=== PATIENT | male | born 1965 | race Caucasian/White ===

== ENCOUNTER 2018-07-10 06:43 | Day surgery (SDC) | payer MEDICAID, OTHER ==
[2018-07-10] MEDS ORDERED: Propofol 200 MG/20 ML SDV ONE (07:04)
[2018-07-10] MEDS ORDERED: Midazolam 1 MG/ML 2 ML SDV ONE (07:04)
[2018-07-10] MEDS ORDERED: fentaNYL 100 MCG/2 ML SDV ONE (07:04)
[2018-07-10] MEDS ORDERED: Dextrose 5%-Lactated Ringers 1,000 ML IV SCH (07:30)
[2018-07-10 10:21] VITALS: BP 122/70
--- NOTE | 2018-07-17 10:17 | OR ---
DATE OF PROCEDURE: 07/10/2018 PREOPERATIVE DIAGNOSES: 1. Chronic loose bowel movements and diarrhea and urgency in the postprandial period. 2. Normal colonoscopic examination other than for limited left colonic diverticulosis. OPERATIVE PROCEDURE: Flexible colonoscopy with: 1. Collection of stool for microbiologic workup ([id number]). 2. Colorectal biopsies to rule out microscopic colitis. ANESTHESIA: IV sedation. INDICATION FOR PROCEDURE: This is a 52-year-old presenting with history of chronic diarrhea and loose stools and urgency occurring after eating. The plan is to proceed with a flexible colonoscopy. We will plan to proceed with collection of stool for microbiologic workup, and if no specific pathology is identified, random colorectal biopsies to rule out microscopic colitis. Potential risks including bleeding and perforation were discussed, and the patient wishes to proceed. DETAILS OF PROCEDURE: The patient was taken to the operating room and placed in a left lateral decubitus position. IV sedation was administered, after which the initial digital rectal exam was performed, which was unremarkable. Colonoscope was then passed into the rectum with retroflexion revealing uncomplicated hemorrhoidal columns. The scope was then eventually passed to the level of the cecum. The prep was fairly good and there was some liquid stool present. The stool was collected and sent for a full microbiologic workup. The patient has some limited uncomplicated left colonic diverticulosis. Otherwise, no specific additional pathology was seen. There were no polyps or signs of neoplasia. No obvious gross colitis. Given this, multiple biopsies were obtained beginning in the cecum and extending downward through the rectum with random biopsies being sent out to rule out microscopic colitis. Minimal bleeding from biopsy sites was seen and the procedure was then concluded. The patient was taken to the recovery room in satisfactory condition. The plan will be to have the patient follow up with SHAYAN Shelby, in [facility] in 7 to 10 days. If nothing is positive on today's exam, one might treat the patient for irritable bowel syndrome and possibly consider Gastroenterology consultation. Armen Yancey MD /[id number]
== END 2018-07-10 10:48 | disposition home or self-care (01) ==
LOC: JP.SDS 06:43
PROVIDERS: ATTEND Surgery
DX: K57.30 Diverticulosis of large intestine without perforation or abscess without bleeding (principal); K64.9 Unspecified hemorrhoids; K21.9 Gastro-esophageal reflux disease without esophagitis; F17.200 Nicotine dependence, unspecified, uncomplicated; Z91.030 Bee allergy status
CPT/HCPCS: 45380; 87046; 87177; 87209; 87493; 87899; 88305; 89055; J2250; J2704; J3010; J7042

== ENCOUNTER 2018-12-18 22:50 | Emergency (ER) | payer MEDICAID ==
[2018-12-18 23:17] VITALS: BP 155/94; PULSE 84
[2018-12-19] MEDS ORDERED: Bacitracin Oint 1 GM U/D Packet TOP ONE (00:15)
--- NOTE | 2018-12-19 00:19 | EDM.PDOC ---
ED HPI GENERAL MEDICAL PROBLEM - General Chief Complaint: Lower Extremity Injury/Pain Stated Complaint: TOE Time Seen by Provider: 12/19/18 00:15 Source of Information: Reports: Patient History Limitations: Reports: No Limitations - History of Present Illness INITIAL COMMENTS - FREE TEXT/NARRATIVE: This gentleman stubbed his left middle toe 2 days ago. It partially dislodged the nail. he's concerned because the toe seems a ttle bit swollen red and painful and he thinks it might be infected. - Related Data Allergies Allergy/AdvReac Type Severity Reaction Status Date / Time venom-honey bee Allergy Cannot Verified 12/18/18 23:06 [bee venom (honey bee)] Remember Home Meds: Home Meds EPINEPHrine [Epipen] 0.3 mg IM ASDIRECTED PRN 02/03/13 [History] Multivit-Min/Iron Fum/Folic AC [Dhstm-Qixwyyl-Hsdqegqn Tablet] 1 tab PO DAILY [History] L.acidoph,Paracasei, B.lactis [Probiotic] 1 each PO DAILY 12/18/18 [History] Loperamide [Imodium AD] 2 mg PO DAILY 12/18/18 [History] Pantoprazole [ProTONIX] 40 mg PO DAILY 12/18/18 [History] Past Medical History - Past Health History Medical/Surgical History: Denies Medical/Surgical History HEENT History: Reports: Impaired Vision Cardiovascular History: Reports: None Respiratory History: Reports: None Gastrointestinal History: Reports: Chronic Diarrhea, GERD, Irritable Bowel Syndrome, Pancreatitis, PUD Genitourinary History: Reports: None Musculoskeletal History: Reports: None, Fracture Neurological History: Reports: Concussion Psychiatric History: Reports: None Endocrine/Metabolic History: Reports: None Hematologic History: Reports: None Immunologic History: Reports: None Oncologic (Cancer) History: Reports: None Dermatologic History: Reports: None - Infectious Disease History Infectious Disease History: Reports: Chicken Pox, Helicobacter Pylori - Past Surgical History Head Surgeries/Procedures: Reports: None HEENT Surgical History: Reports: None Cardiovascular Surgical History: Reports: None Respiratory Surgical History: Reports: None GI Surgical History: Reports: None, Colonoscopy, EGD Neurological Surgical History: Reports: None Musculoskeletal Surgical History: Reports: None Social & Family History - Family History Family Medical History: Noncontributory - Tobacco Use Smoking Status *Q: Current Every Day Smoker Years of Tobacco use: 40 Packs/Tins Daily: 1 - Caffeine Use Caffeine Use: Reports: Coffee - Recreational Drug Use Recreational Drug Use: No Review of Systems - Review of Systems Review Of Systems: ROS reveals no pertinent complaints other than HPI. ED EXAM, GENERAL - Physical Exam Exam: See Below Exam Limited By: No Limitations General Appearance: Alert, WD/WN, No Apparent Distress Extremities: Other (Of the left middle toe the nail has been completely dislodged from the nailbed however is still attached by the ungual margin. It's slightly reddened and just slightly swollen and appears to be wet. There is no geraldo pus) Course - Vital Signs Last Recorded V/S: Last Vital Signs Temp Pulse 84 12/18/18 23:16 Resp 17 12/18/18 23:16 BP 155/94 H 12/18/18 23:16 Pulse Ox 91 L 12/18/18 23:16 - Orders/Labs/Meds Meds: Medications Discontinued Medications Generic Name Dose Route Start Last Admin Trade Name Trevon PRN Reason Stop Dose Admin Bacitracin 1 dose 12/19/18 00:15 12/19/18 00:20 Bacitracin Oint 1 Gm TOP 12/19/18 00:16 1 dose ONETIME ONE Administration Lidocaine HCl 5 ml 12/18/18 23:34 12/19/18 00:20 Xylocaine-Mpf 1% INJECT 12/18/18 23:35 Not Given ONETIME ONE - Re-Assessments/Exams Free Text/Narrative Re-Assessment/Exam: 12/20/18 18:13 Since the nail has already been avulsed from the nail bed it was simply teased free from the ungual margin with the blunt end of tissue forceps. This was pain- free so no anesthesia was involved. The wound was then cleaned and bacitracin ointment applied Departure - Departure Time of Disposition: 00:16 Disposition: Home, Self-Care 01 Clinical Impression: Avulsed toenail - Discharge Information Instructions: Nail Avulsion Referrals: Rosario Zhang PA [Primary Care Provider] - Forms: ED Department Discharge Additional Instructions: Wash the toe with soap and water at least once daily. Apply a dab of antibiotic ointment and keep covered with a Band-Aid. It should heal quickly. Take the cephalexin 500 mg 4 times per day for the next 3-5 days.
== END 2018-12-19 00:25 | disposition home or self-care (01) ==
LOC: JP.ED 22:50
DX: S91.205A Unspecified open wound of left lesser toe(s) with damage to nail, initial encounter (principal); K21.9 Gastro-esophageal reflux disease without esophagitis; F17.210 Nicotine dependence, cigarettes, uncomplicated; Z91.030 Bee allergy status; W22.03XA Walked into furniture, initial encounter
CPT/HCPCS: 99282; 99283

== ENCOUNTER 2019-01-06 19:50 | Emergency (ER) | payer MEDICAID ==
[2019-01-06 20:11] VITALS: BP 143/86; PULSE 90
--- NOTE | 2019-01-06 20:32 | EDM.PDOC ---
ED HPI GENERAL MEDICAL PROBLEM - General Chief Complaint: Genitourinary Problem Stated Complaint: BLADDER Time Seen by Provider: 01/06/19 20:26 Source of Information: Reports: Patient, Family (female significant other) History Limitations: Reports: No Limitations - History of Present Illness INITIAL COMMENTS - FREE TEXT/NARRATIVE: 52 year old male present to ER for increased thirst and increased urinary frequency. Patient has noticed white drainage from tip of penis over the last few day. Patient presents with female significant other and in a stable relationship for the last 3 years. Patient has not history of UTI in the past. Patient has some midline lower back pain and lower abdominal discomfort. He denies fever, shills sweats, nausea, vomiting or acute systemic symptoms. Groin Pain Score (Numeric/FACES): 4 - Related Data Allergies Allergy/AdvReac Type Severity Reaction Status Date / Time venom-honey bee Allergy Cannot Verified 12/18/18 23:06 [bee venom (honey bee)] Remember Home Meds: Home Meds EPINEPHrine [Epipen] 0.3 mg IM ASDIRECTED PRN 02/03/13 [History] Multivit-Min/Iron Fum/Folic AC [Romwd-Xfofgqc-Dtuckmpk Tablet] 1 tab PO DAILY [History] L.acidoph,Paracasei, B.lactis [Probiotic] 1 each PO DAILY 12/18/18 [History] Loperamide [Imodium AD] 2 mg PO DAILY 12/18/18 [History] Pantoprazole [ProTONIX] 40 mg PO DAILY 12/18/18 [History] metFORMIN [Glucophage] 500 mg PO BIDMEALS 30 Days #60 tab 01/06/19 [Rx] Past Medical History - Past Health History Medical/Surgical History: Denies Medical/Surgical History HEENT History: Reports: Impaired Vision Cardiovascular History: Reports: None Respiratory History: Reports: None Gastrointestinal History: Reports: Chronic Diarrhea, GERD, Irritable Bowel Syndrome, Pancreatitis, PUD Genitourinary History: Reports: None Musculoskeletal History: Reports: None, Fracture Neurological History: Reports: Concussion Psychiatric History: Reports: None Endocrine/Metabolic History: Reports: None Hematologic History: Reports: None Immunologic History: Reports: None Oncologic (Cancer) History: Reports: None Dermatologic History: Reports: None - Infectious Disease History Infectious Disease History: Reports: Chicken Pox, Helicobacter Pylori - Past Surgical History Head Surgeries/Procedures: Reports: None HEENT Surgical History: Reports: None Cardiovascular Surgical History: Reports: None Respiratory Surgical History: Reports: None GI Surgical History: Reports: None, Colonoscopy, EGD Neurological Surgical History: Reports: None Musculoskeletal Surgical History: Reports: None Social & Family History - Family History Family Medical History: Noncontributory - Tobacco Use Smoking Status *Q: Current Every Day Smoker Years of Tobacco use: 45 Packs/Tins Daily: 1 - Caffeine Use Caffeine Use: Reports: Coffee, Soda Caffeine Use Comment: 2 cups of coffee per drink, occasional soda - Recreational Drug Use Recreational Drug Use: No ED ROS GENERAL - Review of Systems Review Of Systems: ROS reveals no pertinent complaints other than HPI. ED EXAM, GI/ABD - Physical Exam Exam: See Below Exam Limited By: No Limitations General Appearance: Alert, WD/WN, No Apparent Distress Eyes: Bilateral: Normal Appearance, EOMI Ears: Normal External Exam, Normal Canal, Hearing Grossly Normal Nose: Normal Inspection, Normal Mucosa Throat/Mouth: Normal Inspection, Normal Lips, Normal Teeth, Normal Gums, Normal Oropharynx, Normal Voice, No Airway Compromise Head: Atraumatic, Normocephalic Neck: Normal Inspection, Supple, Non-Tender, Full Range of Motion Respiratory/Chest: No Respiratory Distress, Lungs Clear, Normal Breath Sounds, No Accessory Muscle Use, Chest Non-Tender Cardiovascular: Normal Peripheral Pulses, Regular Rate, Rhythm, No Edema, No Murmur GI/Abdominal Exam: Normal Bowel Sounds, Soft, No Organomegaly, No Distention, No Abnormal Bruit, No Mass, Pelvis Stable, Tender (suprapubi discomfort noted ) Back Exam: Normal Inspection, Full Range of Motion, Other (mild midline lower back pain). No: CVA Tenderness (R), CVA Tenderness (L) Extremities: Normal Inspection, Normal Range of Motion, Non-Tender, Normal Capillary Refill, No Pedal Edema Neurological: Alert, Oriented, CN II-XII Intact, Normal Cognition, Normal Gait, Normal Reflexes, No Motor/Sensory Deficits Psychiatric: Normal Affect, Normal Mood Skin Exam: Warm, Dry, Intact, Normal Color, No Rash Course - Vital Signs Last Recorded V/S: Last Vital Signs Temp 36.6 C 01/06/19 20:16 Pulse 90 01/06/19 20:16 Resp 20 01/06/19 20:16 BP 143/86 H 01/06/19 20:16 Pulse Ox 93 L 01/06/19 20:16 - Orders/Labs/Meds Orders: Active Orders 24 hr Category Date Time Status CULTURE URINE [RM] Stat Lab 01/06/19 20:11 Received GLYCOSYLATED HEMOGLOBIN,HGBA1C [CHEM] Stat Lab 01/06/19 20:48 Ordered Labs: Laboratory Tests 01/06/19 01/06/19 01/06/19 Range/Units 20:11 20:59 20:59 WBC 7.9 (4.5-11.0) K/uL RBC 5.35 (4.30-5.90) M/uL Hgb 16.3 H (12.0-15.0) g/dL Hct 46.9 (40.0-54.0) % MCV 88 (80-98) fL MCH 31 (27-31) pg MCHC 35 (32-36) % Plt Count 172 (150-400) K/uL Neut % (Auto) 52 (36-66) % Lymph % (Auto) 38 (24-44) % [place] % (Auto) 9 H (2-6) % Eos % (Auto) 1 L (2-4) % Baso % (Auto) 0 (0-1) % Sodium 132 L (140-148) mmol/L Potassium 3.5 L (3.6-5.2) mmol/L Chloride 96 L (100-108) mmol/L Carbon Dioxide 24 (21-32) mmol/L Anion Gap 15.5 H (5.0-14.0) mmol/L BUN 14 (7-18) mg/dL Creatinine 1.1 (0.8-1.3) mg/dL Est Cr Clr Drug Dosing 87.77 mL/min Estimated GFR (MDRD) > 60 (>60) Glucose 392 H (74-106) mg/dL Calcium 9.2 (8.5-10.1) mg/dL Urine Color Yellow (YELLOW) Urine Appearance Clear (CLEAR) Urine pH 5.0 (5.0-8.0) Ur Specific [place] 1.020 (1.008-1.030) Urine Protein Negative (NEGATIVE) mg/dL Urine Glucose (UA) 500 H (NEGATIVE) mg/dL Urine Ketones 15 H (NEGATIVE) mg/dL Urine Occult Blood Trace-intact H (NEGATIVE) Urine Nitrite Negative (NEGATIVE) Urine Bilirubin Negative (NEGATIVE) Urine Urobilinogen 0.2 (0.2-1.0) EU/dL Ur Leukocyte Esterase Negative (NEGATIVE) Urine RBC 0-5 (0-5) Urine WBC Not seen (0-5) Ur Epithelial Cells Rare Amorphous Sediment Not seen Urine Bacteria Rare Urine Mucus Not seen - Re-Assessments/Exams Free Text/Narrative Re-Assessment/Exam: Patient point of care BS 345, UA >500 glucose but not signs of infection. CBC and Basic Chem ordered to evaluate for electrolyte abnormality before starting metformin. Liver Function test added on to lab and pending at time of discharge. 01/06/19 22:03 Patient and significant other ask numerous good questions about diabetes treatment, life style management and diet changes. Numerous patient education items added to discharge instructions. Departure - Departure Time of Disposition: 21:55 Disposition: Home, Self-Care 01 Clinical Impression: Polydipsia, Polyuria, Diabetes mellitus, Dysuria - Discharge Information Prescriptions: metFORMIN [Glucophage] 500 mg PO BIDMEALS 30 Days #60 tab Instructions: Type 2 Diabetes Mellitus, Diagnosis, Adult, Tips for Eating Away From Home If You Have Diabetes, Complementary and Alternative Medical Therapies for Diabetes, Diabetes Mellitus and Standards of Medical Care, Hyperglycemia, [id number], Type 2 Diabetes Mellitus, Self Care, Adult, Preventing Diabetes Mellitus Complications, Diabetes Mellitus and Exercise Referrals: Rosario Zhang PA [Primary Care Provider] - Forms: ED Department Discharge Additional Instructions: 1. Call [facility] to make an appointment to check Cholesterol, discuss ER visit and new Diabetes diagnosis. 2. Metformin 500mg every am and pm x 1 month, may need be change next month. 3. Limit fruit, carbohydrates and starches to prevent increased in blood sugar levels. 4. Follow information regarding Diet, Exercise and life style changes to improve heal and prevent complications of diabetes. - Problem List & Annotations (1) Polydipsia SNOMED Code(s): 58737895 Code(s): R63.1 - POLYDIPSIA Status: Acute Current Visit: Yes (2) Polyuria SNOMED Code(s): 84796049 Code(s): R35.8 - OTHER POLYURIA Status: Acute Current Visit: Yes (3) Diabetes mellitus SNOMED Code(s): 41711338 Code(s): E11.9 - TYPE 2 DIABETES MELLITUS WITHOUT COMPLICATIONS Status: Acute Current Visit: Yes (4) Dysuria SNOMED Code(s): 93340149 Code(s): R30.0 - DYSURIA Status: Acute Current Visit: Yes - My Orders Last 24 Hours: My Active Orders 01/06/19 20:11 CULTURE URINE [RM] Stat 01/06/19 20:48 GLYCOSYLATED HEMOGLOBIN,HGBA1C [CHEM] Stat - Assessment/Plan Last 24 Hours: My Active Orders 01/06/19 20:11 CULTURE URINE [RM] Stat 01/06/19 20:48 GLYCOSYLATED HEMOGLOBIN,HGBA1C [CHEM] Stat
[2019-01-08 09:10] LABS: HEMOGLOBIN A1C 8.4 % (4.5-6.2)
== END 2019-01-06 22:10 | disposition home or self-care (01) ==
LOC: JP.ED 19:50
DX: E11.9 Type 2 diabetes mellitus without complications (principal); R30.0 Dysuria; K21.9 Gastro-esophageal reflux disease without esophagitis; F17.210 Nicotine dependence, cigarettes, uncomplicated; Z91.030 Bee allergy status; Z79.899 Other long term (current) drug therapy; Z79.84 Long term (current) use of oral hypoglycemic drugs
CPT/HCPCS: 36415; 80048; 80076; 81001; 82962; 83036; 85025; 87086; 99283

== ENCOUNTER 2022-12-19 10:03 | Emergency (ER) | payer BC ==
[2022-12-19 10:50] VITALS: BP 115/61; PULSE 77
== END 2022-12-19 12:25 | disposition home or self-care (01) ==
LOC: JP.ED 10:03
DX: M12.811 Other specific arthropathies, not elsewhere classified, right shoulder (principal); E11.9 Type 2 diabetes mellitus without complications; F17.210 Nicotine dependence, cigarettes, uncomplicated; Z91.030 Bee allergy status
CPT/HCPCS: 99283